=== PATIENT | male | born 2000 | race Caucasian/White ===

== ENCOUNTER → 2019-08-28 14:37 | Outpatient (CLI) | payer OTHER, SELFPAY ==
[2019-08-28 15:34] LABS: Absolute Lymphocyte Count 1.48 X10^3/uL (0.83-4.51); Absolute Neutrophil Count 7.4 X10^3/uL (2.0-7.7); Basophil# 0.03 X10^3/uL; Basophil% 0.3 % (0-1); Eosinophil# 0.13 X10^3/uL; Eosinophils% 1.3 % (0-5); Hematocrit 39.3 % (40-54); Hemoglobin 13.5 g/dL (13.0-16.5); Lymphocyte # 1.48 X10^3/ul (4.0); Lymphocyte % 15.2 % (19-41); Mean Corp Hgb Conc 34.4 g/dL (32-36); Mean Corpuscular Hgb 29.7 pg (27.0-32.0); Mean Corpuscular Volume 86.4 fL (80-94); Mean Platelet Vol. 9.1 fl (6.2-12.0); Monocyte# 0.68 X10^3/uL; NRBC Flagged by Analyzer 0 % (0-5); Neutrophil # 7.38 X10^3/uL (2.7-7.7); Neutrophil % 75.8 % (47-70); Platelet Count 197 K/mm3 (150-450); RBC Distribution Width SD 37.8 fl (35.1-43.9); Red Blood Count 4.55 M/mm3 (4.6-6.2); White Blood Count 9.7 K/mm3 (4.4-11.0)
[2019-08-28 15:58] LABS: Internal QC Validated? YES +Cl - CLEAR BKGD; Monotest Negative (Negative)
[2019-08-30 17:59] LABS: EBV Acute VCA IgM < 36.0 U/mL (0.0-35.9); EBV Nuclear Antigen IgG < 18.0 U/mL (0.0-17.9); EBV-VCA IgG < 18.0 U/mL (0.0-17.9)
== END ==
PROVIDERS: PCP Family Medicine; Referring Provider Family Medicine; Visit Provider Family Medicine
DX: J02.9 Acute pharyngitis, unspecified (principal)
CPT/HCPCS: 36415; 85025; 86308; 86664; 86665

== ENCOUNTER → 2020-04-15 11:13 | Outpatient (CLI) | payer OTHER, SELFPAY ==
[2020-04-15 12:18] LABS: Absolute Lymphocyte Count 3.73 X10^3/uL (0.83-4.51); Absolute Neutrophil Count 8.2 X10^3/uL (2.0-7.7); Basophil# 0.06 X10^3/uL; Basophil% 0.5 % (0-1); Eosinophil# 0.04 X10^3/uL; Eosinophils% 0.3 % (0-5); Hematocrit 41.7 % (40-54); Hemoglobin 14.6 g/dL (13.0-16.5); Lymphocyte # 3.73 X10^3/ul (4.0); Lymphocyte % 29.2 % (19-41); Mean Corpuscular Hgb 29.2 pg (27.0-32.0); Mean Corpuscular Volume 83.4 fL (80-94); Mean Platelet Vol. 8.8 fl (6.2-12.0); Monocyte# 0.68 X10^3/uL; Monocyte% 5.3 % (0-10); NRBC Flagged by Analyzer 0 % (0-5); Neutrophil # 8.22 X10^3/uL (2.7-7.7); Neutrophil % 64.3 % (47-70); Platelet Count 249 K/mm3 (150-450); RBC Distribution Width CV 11.7 % (11.6-14.6); RBC Distribution Width SD 35.3 fl (35.1-43.9); White Blood Count 12.8 K/mm3 (4.4-11.0)
[2020-04-15 12:34] LABS: ALB/GLOB Ratio 0.9 RATIO (0.9-2.4); AST(SGOT) 43 U/L (15-37); Alanine Aminotransfer ALT/SGPT 201 U/L (16-61); Albumin, Serum 4.1 g/dL (3.2-5.0); Alkaline Phosphatase 132 U/L (45-117); Anion Gap 6 (5-15); BUN 11 mg/dL (7-18); Calcium,Total 9.5 mg/dL (8.5-10.1); Chloride 101 mmol/L (98-107); EST Glomerular Filtration Rate 90 mL/min (>60); Est Glom Filt Rate - Afr Amer 109 mL/min (>60); Globulin 4.4 g/dL (2.2-4.2); Glucose 99 mg/dL (74-106); Potassium 3.7 mmol/L (3.5-5.1); Protein, Total 8.5 g/dL (6.4-8.2); Sodium Level 136 mmol/L (136-145)
[2020-04-15 13:08] LABS: Internal QC Validated? YES +Cl - CLEAR BKGD; Monotest POSITIVE (Negative)
[2020-04-16 16:31] LABS: EBV Acute VCA IgM 41.4 U/mL (0.0-35.9); EBV Nuclear Antigen IgG < 18.0 U/mL (0.0-17.9); EBV-VCA IgG < 18.0 U/mL (0.0-17.9)
== END ==
PROVIDERS: PCP Family Medicine; Referring Provider Family Medicine; Visit Provider Family Medicine
DX: J02.9 Acute pharyngitis, unspecified (principal)
CPT/HCPCS: 36415; 80053; 85025; 86308; 86664; 86665; 87070; 87077; 87186

== ENCOUNTER 2020-04-19 09:17 | Emergency (ER) | payer OTHER, SELFPAY ==
[2020-04-19] VITALS (8 sets, daily range): BP systolic 130–154; BP diastolic 78–98; PULSE 74–102; RESP 14–16; TEMP 37–37.3; O2SAT 95–99; BMI 23.7
--- NOTE | 2020-04-19 10:01 | CT_ITS ---
STUDY: CT SOFT TISSUE NECK WITH CONTRAST REASON FOR EXAM: Male, 20 years old. DIFFICULTY SWALLOWING -- DX W/ MONO X4 DAYS AGO RADIATION DOSAGE (If Supplied By Facility): CTDIvol = ( 18.06 ) mGy, DLP = ( 509.93 ) mGycm TECHNIQUE: The patient was scanned in a multi-detector CT scanner. High resolution transaxial imaging was performed following intravenous administration of IV 100mL Isovue-300. Sagittal and coronal images were reconstructed. Individualized dose optimization techniques were used for this CT. COMPARISON: None. FINDINGS: Marked enlargement of the right pharyngeal tonsil with a 3.5 cm well-defined abscess. This distorts and deviates the aerodigestive tract to the left. There is a well-defined enhancing, relatively thin wall. There is additional edema and possible smaller 1.2 cm abscess involving the soft palate and uvula, best seen on axial image 78 and sagittal image 45. Lesser degree of pharyngeal wall edema on the left consistent with pharyngitis. Normal bilateral parotid glands. Normal bilateral jira developer spaces. Normal bilateral parapharyngeal spaces. Normal bilateral carotid spaces. Normal bilateral sublingual and submandibular glands and spaces. Normal visualized nasopharynx. Normal retropharyngeal space. Normal perivertebral space. Normal visualized bilateral faucial tonsils. The visualized tongue, tongue base and oropharynx are normal. Moderate bilateral posterior cervical triangle adenopathy. Normal epiglottis, bilateral vallecula and hypopharynx. The pre-epiglottic and paraglottic adipose spaces are normal. Normal visualized bilateral piriform sinuses, aryepiglottic folds, vocal cords, and arytenoid-cricoid articulations. Normal subglottic trachea. Normal bilateral lobes of the thyroid gland. Normal visualized pulmonary apices. Normal visualized paranasal sinuses. Normal visualized cervical spine. CT/Soft Tissue Neck WITH Contrast IMPRESSION: Evidence of diffuse pharyngitis but with a very large right pharyngeal tonsil abscess, and additional inflammatory swelling and possible small abscess of the soft palate and uvula. Electronically Signed: Antoni Lind MD at 12:16 EDT , Service support ,
[2020-04-19] MEDS: 0.9% Normal Saline 1,000 ML 1000 ML IV (10:12)
[2020-04-19] MEDS: dexAMETHasone 10 MG/ML Vial IV (10:13)
[2020-04-19] MEDS: Ketorolac 15 MG/ML Vial IV ×2 (10:15→16:16)
[2020-04-19 10:31] LABS: Absolute Neutrophil Count 7.4 X10^3/uL (2.0-7.7); Basophil# 0.03 X10^3/uL; Basophil% 0.2 % (0-1); Eosinophil# 0.06 X10^3/uL; Eosinophils% 0.5 % (0-5); Hematocrit 38.4 % (40-54); Hemoglobin 13.5 g/dL (13.0-16.5); Lymphocyte % 31.1 % (19-41); Mean Corp Hgb Conc 35.2 g/dL (32-36); Mean Corpuscular Hgb 29.3 pg (27.0-32.0); Mean Corpuscular Volume 83.5 fL (80-94); Mean Platelet Vol. 8.8 fl (6.2-12.0); Monocyte# 1.16 X10^3/uL; Monocyte% 9.2 % (0-10); NRBC Flagged by Analyzer 0 % (0-5); Neutrophil # 7.35 X10^3/uL (2.7-7.7); Neutrophil % 58.5 % (47-70); POSITIVE MORPHOLOGY YES; Platelet Count 275 K/mm3 (150-450); RBC Distribution Width CV 11.7 % (11.6-14.6); RBC Distribution Width SD 35.2 fl (35.1-43.9); White Blood Count 12.6 K/mm3 (4.4-11.0)
[2020-04-19 10:36] LABS: Differential Indicated SCAN CRITERIA MET
[2020-04-19 10:47] LABS: ALB/GLOB Ratio 0.9 RATIO (0.9-2.4); AST(SGOT) 13 U/L (15-37); Alanine Aminotransfer ALT/SGPT 69 U/L (16-61); Albumin, Serum 3.7 g/dL (3.2-5.0); Alkaline Phosphatase 107 U/L (45-117); Anion Gap 4 (5-15); BUN 15 mg/dL (7-18); BUN/Creat Ratio 13.3 RATIO (10-20); Calcium,Total 9.2 mg/dL (8.5-10.1); Chloride 103 mmol/L (98-107); Creatinine, Serum 1.13 mg/dL (0.70-1.30); EST Glomerular Filtration Rate 87 mL/min (>60); Est Glom Filt Rate - Afr Amer 105 mL/min (>60); Estimated Creatinine Clearance 120.23 ml/min; Globulin 4.1 g/dL (2.2-4.2); Glucose 92 mg/dL (74-106); Potassium 3.3 mmol/L (3.5-5.1); Protein, Total 7.8 g/dL (6.4-8.2); Sodium Level 138 mmol/L (136-145)
[2020-04-19 10:59] LABS: Differential Comment SCANNED; Reactive Lymphocyte 2+
[2020-04-19 12:28] LABS: Bacteria 0 SEEN /hpf (None Seen); Mucous, Urine 0 SEEN /hpf (<or=2+); Red Blood Cells-Urine 0 SEEN /hpf (0-5); Squamous Epithelial Cells - UA 0 SEEN /hpf (0-5); White Blood Cells 0 SEEN /hpf (0-5)
[2020-04-19 12:29] LABS: Color, Urine Yellow (Yellow); Glucose, Dipstick Normal (Normal); Ketone-Dipstick Negative (Negative); Leukocyte Esterase-Dipstick Negative /ul (Negative); Nitrite-Dipstick Negative (Negative); Occult Blood-Urine 10 /ul (Negative); Protein-Dipstick 15 mg/dl (Negative); Urine Bilirubin Dipstick Negative (Negative); Urine Clarity Clear (Clear); Urine Urobilinogen Normal (Normal); Urine pH 6.5 (5.0 - 8.0)
[2020-04-19] MEDS: Morphine 4 MG/ML Syringe IV (13:35)
[2020-04-19] MEDS: Ondansetron 4 MG/2 ML Vial IV (13:35)
--- NOTE | 2020-06-02 08:52 | ED.VIS.GEN ---
History of Present Illness Chief Complaint: Sore Throat Informant: Patient, Family Narrative: 1-year-old male with no significant past medical history presents with concern for sore throat difficulty swallowing. Patient states he was recently diagnosed with mononucleosis. Patient has had worsened swelling since that time. Subjective fever. Denies any nausea or vomiting. Denies any headache, vision change, neck pain. Past Medical History - Allergies and Home Meds Allergies/Adverse Reactions: Allergies amoxicillin Allergy (Verified 04/19/20 09:18) Rash bee venom protein (honey bee) Allergy (Verified 04/19/20 09:18) Shortness of breath Penicillins [PCN] Allergy (Verified 04/19/20 09:18) Rash Primary Care Physician: Riley Walters MD [Primary Care Provider] - Prior records reviewed: Yes Past Medical History: None Surgical History: no surgical history Lives: With Family Smoking Status: Former smoker Alcohol: None Drugs: None Review of Systems General: Reports: Fever. Denies: Chills, Sweats Eyes: Denies: Visual changes - bilaterally, Diplopia ENT: Reports: Sore throat. Denies: Rhinorrhea Cardiovascular: Denies: Chest pain, Palpitations Respiratory: Denies: Dyspnea, Cough, Dyspnea on exertion Gastrointestinal: Denies: Abdominal pain, Nausea, Vomiting, Diarrhea, Melena, Hematochezia Genitourinary: Denies: Dysuria, Hematuria, Frequency Musculoskeletal: Denies: Back pain, Extremity Pain Skin: Denies: Rash, Wounds Neurological: Denies: Headache, Weakness, Numbness Physical Exam Inital Vital Signs reviewed: Yes General: Well nourished, Well developed, No Acute Distress Head: Normocephalic, Atraumatic Eyes: Perrl, EOMI ENT: Moist mucous membranes, No rhinorrhea, - - Bilateral tonsillar swelling worse on the right. Neck: Supple, Nontender Cardiovascular: Regular rate, Regular rhythm, No murmurs Respiratory: No distress, CTA bilaterally, Chest nontender Abdomen: Soft, Nontender, Nondistended, Normal bowel sounds Back: Nontender, Normal Inspection Extremities: Nontender, No edema Skin: Normal color, No rash Neurological: Alert, Oriented x3, Cranial nerves II-XII grossly intact, Normal Strength, Normal Sensation Psychological: Normal affect, Normal Mood Diagnostic/Tx/Re-eval - Medical Decision Making Patient appears well and nontoxic. Does have muffled voice. Tolerating secretions. CT concerning for large tonsillar abscess causing airway deviation. Patient given Unasyn as well as pain control. ENT not on-call at [facility] today. Patient will be transferred to [facility] for definitive management. Patient stable at time of transfer. Impression: 1. Tonsillar abscess ED Disposition - Plan for ED Patient: Disposition: [facility] Referrals: Riley Walters MD [Primary Care Provider] -
== END 2020-04-19 17:01 | disposition short-term general hospital (02) ==
PROVIDERS: Emergency Provider Emergency Medicine; PCP Family Medicine
DX: J36 Peritonsillar abscess (principal); Z87.891 Personal history of nicotine dependence
CPT/HCPCS: 70491; 80053; 81001; 85025; 96361; 96365; 96374; 96375; 96376; 99285; J7030; J7040; Q9967; A4216; J2405